=== PATIENT | male | born 1945 | race Caucasian/White ===

== ENCOUNTER 2024-08-30 06:50 | Inpatient (IN) | payer OTHER ==
[2024-08-30] VITALS (8 sets, daily range): BP systolic 121–138; BP diastolic 75–93; PULSE 76–91; RESP 18–20; TEMP 97.7–98.2; O2SAT 94–98
[~2024-08-30] VITALS: Ht 170.2 cm; Wt 77.2 kg
[2024-08-30 07:35] LABS: Basophils # (auto) 0 10 ^3/uL (0-0.2); Basophils % (auto) 0.7 % (0.0-2.0); Eosinophils # (auto) 0.1 10 ^3/uL (0-0.8); Eosinophils % (auto) 1.3 % (0.0-7.0); Hemoglobin 16.1 g/dL (13.5-17.5); Lymphocytes # (auto) 1.4 10 ^3/uL (0.4-5.4); Lymphocytes % (auto) 19.8 % (10.0-50.0); Mean Corpuscular Hemoglobin 31.3 pg (28.0-32.0); Mean Corpuscular Hgb Conc. 34.2 g/dL (32.0-36.0); Mean Corpuscular Volume 91.7 fL (80.0-100.0); Monocytes # (auto) 0.6 10 ^3/uL (0-1.3); Monocytes % (auto) 8.5 % (0.0-12.0); Neutrophils # (auto) 4.8 10 ^3/uL (1.6-8.6); Neutrophils % (auto) 69.7 % (37.0-80.0); Nucleated Red Blood Cells % 0.1 %; Platelet Count (auto) 183 10^3/uL (140-450); Red Blood Cells 5.12 10^6/uL (4.5-5.90); Red Cell Distribution Width 14.1 % (11.8-14.3); White Blood Cell 6.9 10^3/uL (4.4-10.8)
--- NOTE | 2024-08-30 07:35 | DVH ---
EXAM: XR Chest, 1 View CLINICAL INDICATION: chest pain TECHNIQUE: Frontal view of the chest. COMPARISON: None FINDINGS: LUNGS AND PLEURAL SPACES: Right basilar atelectasis or pneumonia. No pneumothorax. HEART: Unremarkable. No cardiomegaly. MEDIASTINUM: Unremarkable. Normal mediastinal contour. BONES/JOINTS: Unremarkable. No acute fracture. OTHER FINDINGS: . . . .. IMPRESSION: Right basilar atelectasis or pneumonia.
[2024-08-30 07:40] LABS: Potassium 4.1 mmol/L (3.5-5.1); Sodium 139 mmol/L (136-145)
[2024-08-30 07:41] LABS: Anion Gap 7 (5-15); Calcium 9.7 mg/dL (8.7-10.4); Carbon Dioxide 25 mmol/L (20-31)
[2024-08-30 07:46] LABS: BUN/Creatinine Ratio 23.6 (10.0-20.0); Glucose 105 mg/dL (74-106)
[2024-08-30 07:50] LABS: Blood Urea Nitrogen 25 mg/dL (9-23); Chloride 107 mmol/L (98-107)
--- NOTE | 2024-08-30 08:18 | ED.PDOC ---
History of Present Illness HPI Comments 79M with a history of metastatic melanoma presents with 4 hours of severe 8/10 left-sided chest pain that does not radiate it is associated with some shortness of breath is not exertional in nature and is not relieved by anything at this time. Patient reports he had a similar episode to this several years ago in [place] but is unsure of what it was. Patient denies any fever chills nausea vomiting diarrhea dysuria or polyuria sick contacts. Chief Complaint: Chest Pain Time Seen by MD: 06:59 Allergies: Coded Allergies: NO KNOWN ALLERGIES (Unverified , 08/30/24) Information Source: Patient Mode of Arrival: Ambulatory All Other Systems: Reviewed and Negative Physical Exam General Appearance: Mild Distress HEENT: Normal ENT Inspection Neck: Non-Tender Respiratory: No Respiratory Distress Cardiovascular: Normal Peripheral Pulses Breast Exam: Normal, Deferred Gastrointestinal: Non Tender Genitalia: Deferred Pelvic: Deferred Rectal: Deferred Extremities: No calf tenderness, Normal capillary refill, Normal inspection, Normal range of motion, Non-tender, No pedal edema Neurologic: No Motor Deficits Cerebellar Function: NOT DONE Reflexes: NOT DONE Skin: Dry, Normal Color, Warm Lymphatic: NOT DONE Was a procedure done? Was a procedure done?: No Differential Dx Considerations may include: ACS, ME, pneumonia, viral syndrome, musculoskeletal strain, CHF X-Ray, Labs, Meds, VS Vital Signs Date Time Temp Pulse Resp B/P (MAP) Pulse Ox O2 Delivery O2 Flow Rate FiO2 08/30/24 07:53 83 08/30/24 06:59 98.2 80 16 117/82 (94) 95 08/30/24 06:57 81 Lab Test 08/30/24 07:09 Range/Units White Blood Count 6.9 4.4-10.8 10^3/uL Red Blood Count 5.12 4.5-5.90 10^6/uL Hemoglobin 16.1 13.5-17.5 g/dL Hematocrit 47.0 41.0-53.0 % Mean Corpuscular Volume 91.7 80.0-100.0 fL Mean Corpuscular Hemoglobin 31.3 28.0-32.0 pg Mean Corpuscular Hemoglobin Concent 34.2 32.0-36.0 g/dL Red Cell Distribution Width 14.1 11.8-14.3 % Platelet Count 183 140-450 10^3/uL Mean Platelet Volume 8.6 6.9-10.8 fL Neutrophils (%) (Auto) 69.7 37.0-80.0 % Lymphocytes (%) (Auto) 19.8 10.0-50.0 % Monocytes (%) (Auto) 8.5 0.0-12.0 % Eosinophils (%) (Auto) 1.3 0.0-7.0 % Basophils (%) (Auto) 0.7 0.0-2.0 % Neutrophils # (Auto) 4.8 1.6-8.6 10 ^3/uL Lymphocytes # (Auto) 1.4 0.4-5.4 10 ^3/uL Monocytes # (Auto) 0.6 0-1.3 10 ^3/uL Eosinophils # (Auto) 0.1 0-0.8 10 ^3/uL Basophils # (Auto) 0 0-0.2 10 ^3/uL Nucleated Red Blood Cells 0.1 % Sodium Level 139 136-145 mmol/L Potassium Level 4.1 3.5-5.1 mmol/L Chloride Level 107 98-107 mmol/L Carbon Dioxide Level 25 20-31 mmol/L Anion Gap 7 5-15 Blood Urea Nitrogen 25 H 9-23 mg/dL Creatinine 1.06 0.700-1.30 mg/dL Glomerular Filtration Rate Calc 72 >90 mL/min BUN/Creatinine Ratio 23.6 H 10.0-20.0 Serum Glucose 105 74-106 mg/dL Calcium Level 9.7 8.7-10.4 mg/dL Troponin I High Sensitivity 6 </=54 ng/L Time of 1ST Reevaluation: 08:16 Reevaluation 1ST: Improved Patient Education/Counseling: Diagnosis, Treatment Family Education/Counseling: No Family Present Departure 1 Departure Time of Disposition: 08:16 (Patient presented with chest pain that was concerning for possible STEMI, ACS, PE, Pneumonia, Muscle Strain, COPD, Dissection. Data: 1. I ordered and reviewed the result of at least 3 labs including a CBC, BMP, and Troponin. 2. I independently interpreted the following tests: EKG which shows sinus arrhythmia and Chest X-ray which shows concern for pneumonia.Risk:This patient has a high risk of morbidity due to further diagnostic testing or treatment and may suffer from an acute cardiac or respiratory disorder. Workup reveals concern versus ACS versus pneumonia and patient should be admitted for further workup and possible expert consultation. We will not give patient the full fluid bolus as patient has a component of volume overload on a physical exam.) Impression: Primary Impression: Right lower lobe pneumonia Qualified Codes: J18.9 - Pneumonia, unspecified organism Additional Impression: Acute chest pain Disposition: ADMITTED INPATIENT Admit to: Med Surg Condition: Serious Critical Care Note Critical Care Time?: Yes Critical care comment: Acute chest pain Authorized and Performed by: Nay Miguel MD Total critical care time: Approximately 36 minutes Due to a high probability of clinically significant, life threatening deterioration, the patient required my highest level of preparedness to intervene emergently and I personally spent this critical care time directly and personally managing the patient. This critical care time included obtaining a history; examining the patient; pulse oximetry; ordering and review of studies; arranging urgent treatment with development of a management plan; evaluation of patient's response to treatment; frequent reassessment; and, discussions with other providers. This critical care time was performed to assess and manage the high probability of imminent, life-threatening deterioration that could result in multi-organ failure. It was exclusive of separately billable procedures and treating other patients and teaching time. Please see my other sections and the rest of the note for further information on patient assessment and treatment. Stability Stability form required: No Heart Score Heart Score: Heart Score Response (Comments) Value History Moderate Suspicious 1 EKG Repolarization Disturb 1 Age >65 2 Risk Factors >3 or Hx ASHD 2 Troponin 1-2 x's Normal limit 1 Total 7 NAY MIGUEL MD Aug 30, 2024 08:18
[2024-08-30] MEDS: NITROGLYCERIN 0.4 MG SL TAB SL ONE (08:27)
[2024-08-30] MEDS: ONDANSETRON HCL 4 MG/2 ML VIAL IV ONE (08:28)
[2024-08-30] MEDS: ASPirin 81 mg TAB PO ONE (08:28)
[2024-08-30] MEDS: SODIUM CHLORIDE 0.9% 1,000 ML IV ONE ×2 (08:28→08:58)
[2024-08-30] MEDS: MORPHINE SULFATE 4 MG/ML SYR/VIAL IV ONE (08:28)
[2024-08-30] MEDS: CEFEPIME 2GM/50ML NS 50 ML IV ONE (08:44)
[2024-08-30] MEDS: AZITHROMYCIN 250 MG TAB PO ONE (08:44)
[2024-08-30] MEDS: VANCOMYCIN 1GM/250ML KIT 200 ML IV ONE (08:45)
[2024-08-30] MEDS ORDERED: ONDANSETRON HCL 4 MG/2 ML VIAL IV PRN (09:15)
[2024-08-30] MEDS ORDERED: DOCUSATE SOD 100 MG CAP PO PRN (09:15)
[2024-08-30] MEDS ORDERED: MORPHINE SULFATE INJ 2 MG/ml SYRG IV PRN (09:15)
[2024-08-30] MEDS ORDERED: NITROGLYCERIN 0.4 MG SL TAB SL PRN (09:15)
[2024-08-30] MEDS ORDERED: HYDROcodone-ACET 5/325MG TAB PO PRN (09:15)
--- NOTE | 2024-08-30 09:23 | DVHHP2 ---
History of Present Illness Reason for Visit: Chest Pain History of Present Illness Triston Martin is a 79-year-old male with past medical history of hyperlipidemia, and cancer who came to the hospital due to chest pain. Patient states the pain started early this morning across his chest and was sharp in nature. The pain was not improving after a couple hours so his caregiver brought him to the hospital. Troponin were negative, he was found to have pneumonia. After receiving some breathing treatments he states his pain has improve and he feels better. Patient also states that he has had a non-productive cough for about 1 week. Patient states he does take some medications at home, but can not remember what they are. Requested him to call his caregiver and have her bring in the medications. Cardiovascular: hyperipidemia Heme/Onc: Cancer Review of Systems Constitutional: No: Fever, Chills, Sweats, Weakness, Malaise, Other Eyes: No: Pain, Vision change, Conjunctivae inflammation, Eyelid inflammation, Other, Redness ENT: No: Ear pain, Ear discharge, Nose pain, Nose discharge, Nose congestion, Mouth pain, Mouth swelling, Throat pain, Throat swelling, Other Respiratory: Cough, Shortness of breath, SOB with excertion; No: Dry, Wheezing, Hemoptysis, Pleuritic Pain, Sputum, Wheezing, Other Cardiovascular: Chest Pain; No: Palpitations, Orthopnea, Paroxysmal Noc. Dyspnea, Edema, Lt Headedness, Other Gastrointestinal: No: Nausea, Vomiting, Abdominal Pain, Diarrhea, Constipation, Melena, Hematochezia, Other Genitourinary: No Dysuria, No Frequency, No Incontinence, No Hematuria, No Retention, No Other Musculoskeletal: No: other, neck pain, shoulder pain, arm pain, back pain, hand pain, leg pain, foot pain Skin: No: Rash, Lesions, Jaundice, Bruising, Other Neurological: No: Weakness, Numbness, Incoordination, Change in speech, Confusion, Seizures, Other Allergies: Coded Allergies: NO KNOWN ALLERGIES (Unverified , 08/30/24) Medications Current Medications Medications Dose Ordered Sig/Melonie Route Start Time Stop Time Status Last Admin Dose Admin Sodium Chloride 10 ml Q8HR IV 08/30/24 14:00 UNV Acetaminophen/ Hydrocodone Bitart 1 tab Q4HP PRN PO 08/30/24 09:15 UNV Ondansetron HCl 4 mg Q4HP PRN IV 08/30/24 09:15 UNV Docusate Sodium 100 mg BIDPRN PRN PO 08/30/24 09:15 UNV Acetaminophen 650 mg Q6HP PRN PO 08/30/24 09:15 UNV Nitroglycerin 0.4 mg Q5MINP PRN SL 08/30/24 09:15 UNV Morphine Sulfate 2 mg Q30M PRN IV 08/30/24 09:15 UNV Methylprednisolone Sodium Succinate 40 mg BID IV 08/30/24 10:00 UNV Ipratropium [place] 0.5 mg Q4HPRN PRN NEB 08/30/24 09:15 UNV Albuterol 2.5 mg Q4HPRN PRN NEB 08/30/24 09:15 UNV Cefepime HCl 50 ml @ 12.5 mls/hr Q12HR IV 08/30/24 22:00 UNV Azithromycin 250 ml @ 125 mls/hr DAILY IV 08/31/24 10:00 UNV Exam Vital Signs Vital Signs Date Time Temp Pulse Resp B/P (MAP) Pulse Ox O2 Delivery O2 Flow Rate FiO2 08/30/24 08:58 72 17 115/76 08/30/24 08:31 Room Air* 0 21 08/30/24 06:59 98.2 95 General Appearance: Alert, Oriented X3, Cooperative, mild distress HEENT: Atraumatic, PERRLA Respiratory: Other (diminished breath sounds) Cardiovascular: Regular rate, Normal S1, Normal S2 Abdominal: Normal bowel sounds, Soft, No tenderness Extremities: No clubbing, No cyanosis, No edema, Normal pulses Skin: No rashes, No breakdown, No significant lesion Neuro: Normal gait, Normal speech, Strength at 5/5 X4 ext Psych/Mental Status: Mental status NL, Mood NL Labs/Xrays Labs Test 08/30/24 08:44 08/30/24 07:09 Range/Units White Blood Count 6.9 4.4-10.8 10^3/uL Red Blood Count 5.12 4.5-5.90 10^6/uL Hemoglobin 16.1 13.5-17.5 g/dL Hematocrit 47.0 41.0-53.0 % Mean Corpuscular Volume 91.7 80.0-100.0 fL Mean Corpuscular Hemoglobin 31.3 28.0-32.0 pg Mean Corpuscular Hemoglobin Concent 34.2 32.0-36.0 g/dL Red Cell Distribution Width 14.1 11.8-14.3 % Platelet Count 183 140-450 10^3/uL Mean Platelet Volume 8.6 6.9-10.8 fL Neutrophils (%) (Auto) 69.7 37.0-80.0 % Lymphocytes (%) (Auto) 19.8 10.0-50.0 % Monocytes (%) (Auto) 8.5 0.0-12.0 % Eosinophils (%) (Auto) 1.3 0.0-7.0 % Basophils (%) (Auto) 0.7 0.0-2.0 % Neutrophils # (Auto) 4.8 1.6-8.6 10 ^3/uL Lymphocytes # (Auto) 1.4 0.4-5.4 10 ^3/uL Monocytes # (Auto) 0.6 0-1.3 10 ^3/uL Eosinophils # (Auto) 0.1 0-0.8 10 ^3/uL Basophils # (Auto) 0 0-0.2 10 ^3/uL Nucleated Red Blood Cells 0.1 % Sodium Level 139 136-145 mmol/L Potassium Level 4.1 3.5-5.1 mmol/L Chloride Level 107 98-107 mmol/L Carbon Dioxide Level 25 20-31 mmol/L Anion Gap 7 5-15 Blood Urea Nitrogen 25 H 9-23 mg/dL Creatinine 1.06 0.700-1.30 mg/dL Glomerular Filtration Rate Calc 72 >90 mL/min BUN/Creatinine Ratio 23.6 H 10.0-20.0 Serum Glucose 105 74-106 mg/dL Calcium Level 9.7 8.7-10.4 mg/dL EXAM: XR Chest, 1 View FINDINGS: LUNGS AND PLEURAL SPACES: Right basilar atelectasis or pneumonia. No pneumothorax. HEART: Unremarkable. No cardiomegaly. MEDIASTINUM: Unremarkable. Normal mediastinal contour. BONES/JOINTS: Unremarkable. No acute fracture. OTHER FINDINGS: . . . .. IMPRESSION: Right basilar atelectasis or pneumonia. 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 Procedure Category Date Status Time Admit ADMIT 08/30/24 Transmitted 09:15 Code Status CODE 08/30/24 Transmitted 09:15 2 Gm Sodium Diet DIET 08/30/24 Transmitted Breakfast Sodium Chloride Lock PHA 08/30/24 Logged (Saline Lock Ns) 14:00 Hydrocodone-Acet PHA 08/30/24 Logged 5/325mg Tab ([place] 09:15 Ondansetron Hcl PHA 08/30/24 Logged (Zofran) 09:15 Docusate Sodium PHA 08/30/24 Logged Capsule (Colace 09:15 Complete Blood Count LAB 08/31/24 Verified 04:00 Comprehensive LAB 08/31/24 Verified Metabolic Panel 04:00 Condition: Serious JIMMIE 08/30/24 In Process 09:15 Acetaminophen Tablet PHA 08/30/24 Logged (Tylenol Tablet) 09:15 Nitroglycerin PHA 08/30/24 Logged Sublingual (Ntrostat 09:15 Morphine Sulfate PHA 08/30/24 Logged Injection 09:15 Stat Ekg For Chest JIMMIE 08/30/24 In Process Pain 09:15 Notify Md Of Changes JIMMIE 08/30/24 In Process From Base 09:15 Entertainment Director For JIMMIE 08/30/24 In Process 24 Hours 09:15 Emergency Dysrhythmia JIMMIE 08/30/24 In Process Protocol 09:15 Rhythm Strips Once JIMMIE 08/30/24 In Process Every Shift 09:15 Oxygen By Nasal RT 08/30/24 Transmitted Cannula 09:15 Methylprednisolone PHA 08/30/24 Logged Sod Succ (Solu Medrol 10:00 Ipratropium Medneb PHA 08/30/24 Logged (Atrovent Medneb) 09:15 Albuterol Medneb PHA 08/30/24 Logged (Ventolin Medneb) 09:15 Cefepime 1gm/ 50ml PHA 08/30/24 Logged (Maxipime 1gm/50ml) 22:00 Azithromycin 500mg/ PHA 08/31/24 Transmitted 250ml (Zithromax 50 10:00 Date of Service: Aug 30, 2024 Billing Provider: FAY POTTER Common Visit Codes: [id number] INP/OBS CARE (MOD) FAY POTTER Aug 30, 2024 09:23
[2024-08-30] MEDS: methylPREDNISolone SOD SUCC 40 MG/ML VL IV SCH (10:23)
[2024-08-30] MEDS: SODIUM CHLOR 0.9% PF (SALINE LOCK) 10ML VIAL/SYR IV SCH (14:10)
--- NOTE | 2024-08-30 14:43 | ECG ---
[facility] Test Date: 2024-08-30 Test Time: 09:52:33 Pat Name: EMILY LYONS Department: ER Room: [address] [place] [address] A Gender: M Publishing Director: LARISA : 1945 Requested By: VERONIQUE COOPER Order Number: [id number] Reading MD: Presley Rosales Measurements Intervals [place] Rate: 80 P: 18 SC: 170 QRS: -58 QRSD: 93 T: 0 QT: 508 QTc: 587 Interpretive Statements Sinus rhythm Ventricular premature complex Left anterior fascicular block Abnormal R-wave progression, early transition Borderline T wave abnormalities Prolonged QT interval Electronically Signed On 08-30-2024 17:52:20 PST by Presley Rosales Please click the below link to view image of tracing.
--- NOTE | 2024-08-30 14:43 | ECG ---
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
[2024-08-30] MEDS: CEFEPIME 1GM/ 50ML 50 ML IV SCH (21:35)
[2024-08-30] MEDS ORDERED: BUPR-133 PO (21:50)
[2024-08-30] MEDS ORDERED: TRAZ-181 PO (21:50)
[2024-08-30] MEDS ORDERED: METH-1182 PO (21:50)
[2024-08-31] VITALS (12 sets, daily range): BP systolic 121–150; BP diastolic 76–98; PULSE 67–98; RESP 17–20; TEMP 97.6–98.4; O2SAT 91–97
[2024-08-31] MEDS: ALBUTEROL SULF 2.5 MG/0.5ML(0.5%) NEB SOLN NEB PRN (04:53)
[2024-08-31] MEDS: IPRATROPIUM BROM 0.5 MG/2.5ML INH SOL NEB PRN (04:53)
--- NOTE | 2024-08-31 06:41 | ECG ---
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
[2024-08-31 07:09] LABS: Basophils # (auto) 0 10 ^3/uL (0-0.2); Basophils % (auto) 0.2 % (0.0-2.0); Eosinophils # (auto) 0 10 ^3/uL (0-0.8); Hematocrit 47.1 % (41.0-53.0); Hemoglobin 16.3 g/dL (13.5-17.5); Lymphocytes # (auto) 0.9 10 ^3/uL (0.4-5.4); Lymphocytes % (auto) 11.5 % (10.0-50.0); Mean Corpuscular Hemoglobin 31.6 pg (28.0-32.0); Mean Corpuscular Hgb Conc. 34.6 g/dL (32.0-36.0); Mean Corpuscular Volume 91.5 fL (80.0-100.0); Monocytes # (auto) 0.4 10 ^3/uL (0-1.3); Monocytes % (auto) 5.4 % (0.0-12.0); Neutrophils # (auto) 6.5 10 ^3/uL (1.6-8.6); Neutrophils % (auto) 82.9 % (37.0-80.0); Nucleated Red Blood Cells % 0.1 %; Platelet Count (auto) 196 10^3/uL (140-450); Red Blood Cells 5.14 10^6/uL (4.5-5.90); Red Cell Distribution Width 13.9 % (11.8-14.3); White Blood Cell 7.9 10^3/uL (4.4-10.8)
[2024-08-31 07:18] LABS: Alanine Aminotransferase 19 U/L (7-40); Albumin 4.7 g/dL (3.2-4.8); Alkaline Phosphatase 66 U/L (46-116); Anion Gap 11 (5-15); Aspartate Aminotransferase 20 U/L (13-40); BUN/Creatinine Ratio 27.3 (10.0-20.0); Bilirubin, Total 0.4 mg/dL (0.2-1.0); Calcium 9.6 mg/dL (8.7-10.4); Carbon Dioxide 23 mmol/L (20-31); Chloride 106 mmol/L (98-107); Potassium 4.6 mmol/L (3.5-5.1); Sodium 140 mmol/L (136-145)
[2024-08-31 07:21] LABS: Blood Urea Nitrogen 30 mg/dL (9-23); Glucose 151 mg/dL (74-106)
[2024-08-31] MEDS: AZITHROMYCIN 500MG/ 250ML 250 ML IV SCH (09:31)
[2024-08-31 11:55] LABS: COVID19 ANTIGEN SOFIA FIA NEGATIVE (NEGATIVE); Rapid Influenza A Negative (Negative); Rapid Influenza B Negative (Negative)
--- NOTE | 2024-08-31 13:52 | MEDREC ---
[facility] Intervention Section I [facility] Intervention: Review courses of therapy (DUE TO PROLONG QTc > 500 PLEASE CONSIDER SWITCHING AZITHROMYCIN TO DOXYCYCLINE ) CYRIL LAWTON PHARMACIST Aug 31, 2024 13:52
[2024-08-31] MEDS ORDERED: hydrALAZINE HCL 20 MG/ML VL IV PRN (14:45)
--- NOTE | 2024-08-31 14:55 | DVHINCON2 ---
Date Seen: Aug 31, 2024 Referring Physician MD Clary Reason for Consultation Chest pain History of Present Illness This is a 79-year-old man who presents the emergency room with a chief complaint of chest pain since last night. Describes his chest pain as left-sided, stabbing in nature, radiating to his left arm, associated with mild shortness of breath, and intermittent which prompted his caregiver to recommend further medical attention. Upon arrival to the emergency room he underwent multiple 12 lead electrocardiogram revealing a sinus rhythm with premature ventricular contractions, notched P-waves, a prolonged QT interval, and nonspecific T-wave inversion to anterolateral leads. Serial troponin levels are negative. Significant medical history includes dyslipidemia, melanoma, a smoking history of 50 pack years quitting 1.5 years ago, history of polysubstance abuse including cocaine/methamphetamines/fentanyl/cannabinoids, and history of alcohol use. Past Medical History Past medical history reviewed. No other significant than mentioned above. Past Surgical History Past surgical history reviewed. No other significant than mentioned above. Family History Family history reviewed. Social History See HPI. Allergies: Coded Allergies: NO KNOWN ALLERGIES (Unverified , 08/30/24) Home Meds Reported Medications Bupropion Hcl (Bupropion Hcl Er) 150 Mg Tab, 150 MG PO DAILY, TAB 08/30/24 Methocarbamol (Methocarbamol) 750 Mg Tab, 750 MG PO BID, TAB 08/30/24 Trazodone HCl (Trazodone Hydrochloride) 50 Mg Tab, 100 MG PO, TAB 08/30/24 Home Meds Home medications reviewed. Current Medications Current Medications Medications (Trade) Dose Ordered Sig/Melonie Route PRN Reason Start Time Stop Time Status Last Admin Cefepime HCl 50 ml @ 12.5 mls/hr Q12HR IV 08/30/24 22:00 08/31/24 11:10 DC 08/31/24 09:41 Azithromycin 250 ml @ 125 mls/hr DAILY IV 08/31/24 10:00 08/31/24 09:31 Ceftriaxone Sodium 50 ml @ 100 mls/hr DAILY@09 IV 09/01/24 09:00 Review of Systems Constitutional: No symptom reported Ears, Nose, & Throat: No symptom reported Eyes: No symptom reported Neurological: No symptoms reported Pulmonary/Respiratory: SOB Cardiovascular: Chest pain Gastrointestinal: No symptom reported Genitourinary: No symptom reported Musculoskeletal: No symptom reported Skin: No symptom reported Psychiatric: No symptom reported Endocrine: No symptom reported Hemotologic/Lymphatic: No symptom reported Vital Signs Vital Signs Date Time Temp Pulse Resp B/P (MAP) Pulse Ox O2 Delivery O2 Flow Rate FiO2 08/31/24 13:00 97.6 82 19 150/96 (114) 94 97.6 08/31/24 09:45 Room Air 0.0 08/31/24 09:45 21 Physical Exam General Appearance: Cooperative. Well developed. Well nourished. In no acute distress Head Exam: Normal inspection Neck Exam: Normal inspection. Non-tender. Normal alignment Pulmonary/Respiratory: Chest non-tender. Diminished bilateral breath sounds Cardiovascular/Chest: Regular rate and rhythm. S1, S2. Sinus rhythm with multiple PVCs, prolonged QTi, T-wave inversion to anterolateral leads. Peripheral Pulses: 2+ Radial (R). 2+ Radial (L). 2+ Pedal (R). 2+ Pedal (L) Abdominal Exam: Normal bowel sounds. Soft. Nontender. No hepatospenomegaly. No masses Ankle Exam: Negative ankle edema Lower extremities: Negative lower extremity edema Neuro/Mental Status: A&O x3. Coherent Thoughts/Psych: Normal thought pattern. Appropriate mood and affect. Appearance: In no acute distress Skin Exam: Normal inspection. Normal color. Warm. Dry Labs/Diagnostic Data Labs Test 08/31/24 10:26 08/31/24 06:15 08/30/24 10:45 08/30/24 08:44 Range/Units Influenza Type A Antigen Negative Negative Influenza Type B Antigen Negative Negative SARS-CoV-2 Antigen (Rapid) Negative NEGATIVE White Blood Count 7.9 4.4-10.8 10^3/uL Red Blood Count 5.14 4.5-5.90 10^6/uL Hemoglobin 16.3 13.5-17.5 g/dL Hematocrit 47.1 41.0-53.0 % Mean Corpuscular Volume 91.5 80.0-100.0 fL Mean Corpuscular Hemoglobin 31.6 28.0-32.0 pg Mean Corpuscular Hemoglobin Concent 34.6 32.0-36.0 g/dL Red Cell Distribution Width 13.9 11.8-14.3 % Platelet Count 196 140-450 10^3/uL Mean Platelet Volume 8.8 6.9-10.8 fL Neutrophils (%) (Auto) 82.9 H 37.0-80.0 % Lymphocytes (%) (Auto) 11.5 10.0-50.0 % Monocytes (%) (Auto) 5.4 0.0-12.0 % Eosinophils (%) (Auto) 0.0 0.0-7.0 % Basophils (%) (Auto) 0.2 0.0-2.0 % Neutrophils # (Auto) 6.5 1.6-8.6 10 ^3/uL Lymphocytes # (Auto) 0.9 0.4-5.4 10 ^3/uL Monocytes # (Auto) 0.4 0-1.3 10 ^3/uL Eosinophils # (Auto) 0 0-0.8 10 ^3/uL Basophils # (Auto) 0 0-0.2 10 ^3/uL Nucleated Red Blood Cells 0.1 % Sodium Level 140 136-145 mmol/L Potassium Level 4.6 3.5-5.1 mmol/L Chloride Level 106 98-107 mmol/L Carbon Dioxide Level 23 20-31 mmol/L Anion Gap 11 5-15 Blood Urea Nitrogen 30 H 9-23 mg/dL Creatinine 1.10 0.700-1.30 mg/dL Glomerular Filtration Rate Calc 69 >90 mL/min BUN/Creatinine Ratio 27.3 H 10.0-20.0 Serum Glucose 151 H 74-106 mg/dL Calcium Level 9.6 8.7-10.4 mg/dL Total Bilirubin 0.4 0.2-1.0 mg/dL Aspartate Amino Transferase (AST) 20 13-40 U/L Alanine Aminotransferase (ALT) 19 7-40 U/L Alkaline Phosphatase 66 46-116 U/L Total Protein 7.0 5.7-8.2 g/dL Albumin 4.7 3.2-4.8 g/dL Troponin I High Sensitivity 5 </=54 ng/L Lactic Acid Level 0.9 0.4-2.0 mmol/L Microbiology Date/Time Source Procedure Growth Status 08/30/24 08:44 Blood Blood Culture - Preliminary NO GROWTH AFTER 24 HOURS OF INCUBATION. Resulted Assessment Chest pain rule out coronary artery disease Rule out structural heart disease Prolonged QT interval >580 ms Right lower lobe pneumonia History of heavy tobacco use History of polysubstance abuse Plan/Recommendation (Dr. Rosales) Scheduled for a transthoracic echocardiogram to rule out structural heart disease as well as a Cardiolite stress test to rule out coronary ischemia. In the meantime, continue ABX therapy per primary care team including discontinuation of azithromycin given prolonged QT interval. The patient has been initiated on doxycycline. Upgrade to telemetry and monitor ECG changes closely as the patient is at high risk for torsades de pointes. Avoid class III antiarrhythmic agents. Initiate single-antiplatelet therapy and beta-norma. Rest of plan per clinical course. Thank you for allowing us to participate in this patient's care. Please call if you have any questions or concerns. This medical document was created using an electronic medical record system with voice recognition software and computerized dictation system. Although this document has been carefully reviewed, there might still be some phonetic and typographical errors. Occasional wrong-word or ``sound-alike substitutions may have occurred due to the inherent limitations of voice recognition software. These areas are purely typographical due to imperfections of the software programs and do not reflect any compromise in the patient's medical care. Please read the chart carefully and recognize, using context, where these substitutions have occurred. Plan discussed with: Patient, Other NYHA Physical activity limitations: NA Date of Service: Aug 31, 2024 Billing Provider: JOSEPH URBAN Cardiology Common Codes: [id number] INP/OBS CARE (High) JOSEPH URBAN Aug 31, 2024 14:54
[2024-08-31] MEDS: cefTRIAXone 1GM/50ML D5W 50 ML IV ONE (15:07)
[2024-08-31] MEDS: ASPirin 81 mg TAB PO ONE (15:07)
[2024-08-31] MEDS: METOPROLOL SUCCINATE XL 50 MG TAB PO ONE (15:08)
[2024-08-31 15:53] LABS: Magnesium 2.5 mg/dL (1.6-2.6)
--- NOTE | 2024-08-31 19:56 | DVHPNRES ---
Progress Note Date Seen: Aug 31, 2024 Resident Creating Document: NIELS CAO RESIDENT Medical Necessity Reason Pt with a Central, PICC or Fol: No Medical Necessity Reason sharp chest pain Subjective Review of Systems This is a 79-year-old male with past medical history significant for hyperlipidemia and cancer presented to the hospital due to chest pain. Patient stated the pain started early yesterday ( 08/30/2024) morning across his chest. Pain was sharp in nature and radiated to his left arm. There was no associate nausea or vomiting and no aggravating or relieving factors. Patient rested at home hoping the pain would subside, but no improvement. Therefore, patient came to the ED for evaluation. Upon arrrival to the ED, vitals were temperature 98.2, pulse 81, respiratory rate 16 and blood pressure of 117/80. WBC and chemistry were grossly unremarkable. Patient has a hemoglobin A1c of 5.4 with serum glucose of 151. Cholesterol 217 and LDL cholesterol 162 TSH was 1.43. patient was negative for both influenza a and B and COVID. Troponin were negative, BNP was 42. Twelve lead EKG shows prolonged QT the inferior leads which was not reliabl; some PVCs and T-wave inversion in the anterolateral leads. Chest x-ray revealed Right basilar atelectasis or pneumonia. Of note patient admitted to smoking cigarettes during drugs everything except for heroin and also alcohol since the age of 12 until about a year and a half ago. Given the history of substance abuse and no and never seen a nephrology social worker and the EKG finds, will recommend a cardiac consult for ischemic workup. Constitutional: Denies fever no chills no feeling of malaise HEENT: Denies headache, ear pain, ear discharges, conjunctivitis, nasal discharge throat pain Cardiovascular: Denies chest pain, palpitation, orthopnea, PND, or pedal edema Respiratory: Denies shortness of breath, cough cough, sputum production, hemoptysis, GI: Denies abdominal pain, nausea, vomiting, diarrhea, hematemesis, hematochezia, : Denies frequency, urgency, hematuria, Endocrine: Denies unintentional weight gain or weight loss, feeling of hot flashes, Aleksandar: Denies easy bruising, bleeding disorders, epistaxis Musculoskeletal: Denies joint pains, muscle aches Psych: No evidence of depression, karie, suicidal ideation Objective vital signs Vital Sign Date Time Temp Pulse Resp B/P (MAP) Pulse Ox O2 Delivery O2 Flow Rate FiO2 08/31/24 18:30 95 Room Air* 0 21 08/31/24 16:32 98.1 67 17 121/76 (91) 98.1 Total Intake and Output 08/30/24 08/30/24 08/31/24 15:00 23:00 07:00 Intake Total 2212.5 ml 500 ml 400 ml Output Total 400 ml Balance 2212.5 ml 100 ml 400 ml medications Current Medications Medications Dose Ordered Sig/Melonie Route Start Time Stop Time Status Last Admin Dose Admin Sodium Chloride 10 ml Q8HR IV 08/30/24 14:00 08/31/24 15:08 10 ML Acetaminophen/ Hydrocodone Bitart 1 tab Q4HP PRN PO 08/30/24 09:15 Ondansetron HCl 4 mg Q4HP PRN IV 08/30/24 09:15 Docusate Sodium 100 mg BIDPRN PRN PO 08/30/24 09:15 Acetaminophen 650 mg Q6HP PRN PO 08/30/24 09:15 Nitroglycerin 0.4 mg Q5MINP PRN SL 08/30/24 09:15 Morphine Sulfate 2 mg Q30M PRN IV 08/30/24 09:15 Ipratropium Lorenzo 0.5 mg Q4HPRN PRN NEB 08/30/24 09:15 08/31/24 04:53 0.5 MG Albuterol 2.5 mg Q4HPRN PRN NEB 08/30/24 09:15 08/31/24 04:53 2.5 MG Ceftriaxone Sodium 50 ml @ 100 mls/hr DAILY@09 IV 09/01/24 09:00 Aspirin 81 mg DAILY PO 09/01/24 10:00 Metoprolol Succinate 25 mg DAILY PO 09/01/24 10:00 Hydralazine HCl 10 mg Q6HP PRN IV 08/31/24 14:45 Enoxaparin Sodium 40 mg DAILY SC 09/01/24 10:00 Doxycycline Hyclate 100 ml @ 50 mls/hr Q12HR IV 09/01/24 22:00 Examination General Appearance: Alert, Oriented X3, Cooperative, No acute distress HEENT: Atraumatic, PERRLA, EOMI, Mucous membrane moist/pink Respiratory: Diminished breath sounds Cardiovascular: Regular rate, Normal S1, Normal S2, No murmurs, no chest wall tenderness, Sinus rhythm with multiple PVCs, prolonged QTi, T-wave inversion to anterolateral leads Abdominal: NO distention, no tenderness, bowel sounds present, no scars noted Extremities: No clubbing, No cyanosis, No edema, Normal pulses, No tenderness/swelling Skin: No rashes, No breakdown, No significant lesion Neuro: Normal gait, Normal speech, Strength at 5/5 X4 ext, Normal tone, Sensation intact, Cranial nerves 3-12 NL, Reflexes 2+ Psych/Mental Status: Mental status NL, Mood NL laboratory and microbiology Laboratory Tests 08/31/24 06:15 Test 08/31/24 06:15 Range/Units Serum Glucose 151 H 74-106 mg/dL Microbiology Date/Time Source Procedure Growth Status 08/30/24 08:44 Blood Blood Culture - Preliminary NO GROWTH AFTER 24 HOURS OF INCUBATION. Resulted Problem List/Assessment/Plan Problem List/Assessment/Plan Assessment Pneumonia due to Gram-positive/ Gram-negative Chest pain, rule out ischemic vs structural heart disease, pending echo Abnormal EKG History of polysubstance abuse Possible COPD, long history of tobacco abuse hyperlipidemia History cancer Plan Antibiotics: ceftriaxone, doxycycline Discontinue azithromycin due to ?QT prolongation ( not prolonged via manual calculations) Cardiac consult Echo pending Recommend pulmonology consult evaluation post discharge Diet: cardiac diet for now DVT prophylaxis: None, patient is mobile Code status: Full Goal of care discussed for more than 35 minutes Case and plan discussed with Dr. Wynn Plan discussed with: Patient My Orders My Orders Orders - NIELS CAO Procedure Category Date Status Time Respiratory Culture VARINDER 08/31/24 Logged W/ Gs 07:00 Drug Screen LAB 08/31/24 Logged 07:00 Ceftriaxone 1gm/50ml PHA 09/01/24 In Process D5w (Rocephin) 09:00 * Cardiology Consult CONS 08/31/24 Transmitted 12:26 Date of Service: Aug 31, 2024 Billing Provider: HOWIE WYNN MD Common Visit Codes: [id number] INP/OBS CARE(HIGH) NIELS CAO Aug 31, 2024 19:56 HOWIE WYNN MD Sep 01, 2024 07:27
[2024-09-01] VITALS (9 sets, daily range): BP systolic 124–144; BP diastolic 72–92; PULSE 58–75; RESP 16–19; TEMP 97.4–98.1; O2SAT 92–98
[2024-09-01] MEDS: ACETAMINOPHEN 325 MG TAB PO PRN (04:43)
[2024-09-01 05:14] LABS: Amphetamine Screen, Urine Neg (NEGATIVE)
[2024-09-01 05:19] LABS: Barbiturate Scree,Urine Neg (NEGATIVE); Benzodiazephine Screen, Urine Neg (NEGATIVE); Cannabinoid Screen, Urine Neg (NEGATIVE); Cocaine Screen, Urine Neg (NEGATIVE); Opiate Scree,Urine Neg (NEGATIVE); Phencyclidine Screen, Urine Neg (NEGATIVE)
[2024-09-01] MEDS: REGADENOSON 0.4 MG/5 ML SYRG IV ONE ×2 (08:55→08:57)
[2024-09-01] MEDS: ASPirin 81 mg TAB PO SCH (10:09)
[2024-09-01] MEDS: cefTRIAXone 1GM/50ML D5W 50 ML IV SCH (10:09)
[2024-09-01] MEDS: METOPROLOL SUCCINATE XL 50 MG TAB PO SCH (10:09)
[2024-09-01] MEDS: ENOXAPARIN SOD 40 MG/0.4 ML SYRINGE SC SCH (10:10)
--- NOTE | 2024-09-01 11:24 | DVHSR ---
APPROVED REPORT Exam: Nuclear Stress Test BMI: 0 Stress Test Details HR Max Heart Rate (APMHR): 142.953998 bpm Target HR (85% APMHR): 120.855322 bpm BP ECG Stress ECG Conclusion lvef 46% completely infarct inferoseptal wall consistent with prior RI no severe ischemia noted NM EXAM: Myocardial Perfusion REST/STRESS Imaging Protocol: Rest Tc-99m/Stress Tc-99m 2 days Resting Data Rest SPECT myocardial perfusion imaging was performed in supine position 45 minutes following the int ravenous injection of 15.1 mCi of Tc-99m Sestamibi. Time of rest injection: 1515 Time of rest imagin Administration Route: IV Administration Site: Right AC Pharmacologic Stress Pharmacologic stress test was performed by injecting Regadenoson 0.4 mg IV push followed by the intra venous injection of 20.5 mCi of Tc-99m Sestamibi. Time of stress injection: 0900 Time of stress imagin Administration Route: IV Administration Site: Left AC Gated Stress SPECT was performed 30 minutes after stress injection. The images were gated to evaluate regional wall motion and calculate left ventricular ejection fracti on. Nuclear Conclusion Nuclear Findings: equivocal lvef 46% completely infarct inferoseptal wall consistent with prior RI no severe ischemia noted
--- NOTE | 2024-09-01 12:11 | DVHSR ---
APPROVED REPORT EXAM: Two-dimensional and M-mode echocardiogram with Doppler and color Doppler. Blood Pressure: 135/83 mmHg INDICATION Chest Pain RISK FACTORS Height: 5'7", Weight: 170 DIMENSIONS LVDd5.5 (3.8-5.7cm)LA (2D)3.7 (1.9-4.0cm)Aortic Root (2.0-3.7cm) LVDs3.9 (2.5-4.0cm)LA (MM) (1.9-4.0cm)Aortic Cusp Exc (1.5-2.0cm) EF (%) 55.0 (55-70%)Rt. Atrium (1.9-4.0cm)Asc. Aorta cm Mitral Valve MitralMitral Stenosis E wave0.50m/sMV Mean GR.mmHg A wave0.92m/sMV Peak GR.mmHg E/A ratio0.52D MVAcm2 DECEL [id number] 1/2 Timems Aortic Valve Aortic ValveAortic Stenosis V11.12m/Susana Mean GR.4mmHg V21.37m/Susana Peak GR.7mmHg LVOT Diameter2.0 (1.8-2.4cm)Doppler AVA2.57cm2 AI P 1/2 Tzyr103.70ms Other Information Quality : Technically LimitedRhythm : Technically limited study due to body habitus and breathing. Conclusion Technically difficult study. Limited views. Sinus rhythm. Sigmoid septum. Mild concentric LVH. Mild left atrial enlargement. Aortic root dilation. Mild aortic sclerosis. Mild mitral annular calcification. Left ventricular function appears preserved. EF of 50% with normal RV function. Mild tricuspid regurgitation. No pericardial effusion masses or vegetations apparent.
--- NOTE | 2024-09-01 14:52 | DVHPN2 ---
Consult Progress Note Subjective Other Systems: Patient in normal sinus rhythm on scanner operator. Denies any cardiac symptoms overnight or at time of assessment. Objective vital signs Vital Sign Date Time Temp Pulse Resp B/P (MAP) Pulse Ox O2 Delivery O2 Flow Rate FiO2 09/01/24 14:03 65 18 97 09/01/24 13:57 Room Air* 0 21 09/01/24 13:00 98.0 126/87 (100) 98.0 Total Intake and Output 08/31/24 08/31/24 09/01/24 15:00 23:00 07:00 Intake Total 1040 ml 400 ml Balance 1040 ml 400 ml medications Current Medications Medications Dose Ordered Sig/Melonie Route Start Time Stop Time Status Last Admin Dose Admin Sodium Chloride 10 ml Q8HR IV 08/30/24 14:00 09/01/24 14:27 10 ML Acetaminophen/ Hydrocodone Bitart 1 tab Q4HP PRN PO 08/30/24 09:15 Ondansetron HCl 4 mg Q4HP PRN IV 08/30/24 09:15 Docusate Sodium 100 mg BIDPRN PRN PO 08/30/24 09:15 Acetaminophen 650 mg Q6HP PRN PO 08/30/24 09:15 09/01/24 04:43 650 MG Nitroglycerin 0.4 mg Q5MINP PRN SL 08/30/24 09:15 Morphine Sulfate 2 mg Q30M PRN IV 08/30/24 09:15 Ipratropium [place] 0.5 mg Q4HPRN PRN NEB 08/30/24 09:15 09/01/24 13:57 0.5 MG Albuterol 2.5 mg Q4HPRN PRN NEB 08/30/24 09:15 09/01/24 13:57 2.5 MG Ceftriaxone Sodium 50 ml @ 100 mls/hr DAILY@09 IV 09/01/24 09:00 09/01/24 10:09 100 MLS/HR Aspirin 81 mg DAILY PO 09/01/24 10:00 09/01/24 10:09 81 MG Metoprolol Succinate 25 mg DAILY PO 09/01/24 10:00 09/01/24 10:09 25 MG Hydralazine HCl 10 mg Q6HP PRN IV 08/31/24 14:45 Enoxaparin Sodium 40 mg DAILY SC 09/01/24 10:00 09/01/24 10:10 40 MG Doxycycline Hyclate 100 ml @ 50 mls/hr Q12HR IV 09/01/24 22:00 Examination: GENERAL:Normal, LUNGS:Normal, CVS:Normal, NEURO:Normal laboratory and microbiology Laboratory Tests 08/31/24 06:15 Test 08/31/24 06:15 Range/Units Serum Glucose 151 H 74-106 mg/dL Problem List/Assessment/Plan Problem List/Assessment/Plan Chest pain rule out coronary artery disease Prolonged QT interval >580 ms Right lower lobe pneumonia History of heavy tobacco use History of polysubstance abuse Plan/Recommendation (Dr. Rosales): Transthoracic echocardiogram reveals an EF of 50% with mild tricuspid regurgitation. The patient underwent a Cardiolite stress test in which nuclear findings were found to be "equivocal". Offered the patient to undergo a coronary angiogram with left heart catheterization, the patient adamantly refused. The patient states he is going home today no matter what even if he has to sign himself out. At the time of assessment, he denies any cardiac symptoms. Patient is strongly urged to stay in the hospital, but refusing any further workup. Cardiology will sign off at this time. Please reconsult if needed. Thank you for allowing us to care for this patient. Please call with any questions or concerns. This medical document was created using an electronic medical record system with voice recognition software and computerized dictation system. Although this document has been carefully reviewed, there might still be some phonetic and typographical errors. Occasional wrong-word or ``sound-alike substitutions may have occurred due to the inherent limitations of voice recognition software. These areas are purely typographical due to imperfections of the software programs and do not reflect any compromise in the patient's medical care. Please read the chart carefully and recognize, using context, where these substitutions have occurred. Plan discussed with: Patient Date of Service: Sep 01, 2024 Billing Provider: ARNOLD GOLDSTEIN Common Visit Codes: [id number] INP/OBS CARE(HIGH) ARNOLD GOLDSTEIN Sep 01, 2024 14:52
[2024-09-01] MEDS ORDERED: LEVO750T40 PO (16:33)
--- NOTE | 2024-09-01 16:38 | DVHDSRES ---
Discharge Summary Date of Admission Resident Creating Document: NIELS CAO RESIDENT Aug 30, 2024 at 09:15 Date of Discharge: Sep 01, 2024 Admitting Diagnosis Chest pain Labs/Diagnostic Data: Laboratory Results Test 08/31/24 10:26 08/31/24 06:15 08/31/24 04:53 08/30/24 10:45 Influenza Type A Antigen Negative (Negative) Influenza Type B Antigen Negative (Negative) SARS-CoV-2 Antigen (Rapid) Negative (NEGATIVE) White Blood Count 7.9 10^3/uL (4.4-10.8) Red Blood Count 5.14 10^6/uL (4.5-5.90) Hemoglobin 16.3 g/dL (13.5-17.5) Hematocrit 47.1 % (41.0-53.0) Mean Corpuscular Volume 91.5 fL (80.0-100.0) Mean Corpuscular Hemoglobin 31.6 pg (28.0-32.0) Mean Corpuscular Hemoglobin Concent 34.6 g/dL (32.0-36.0) Red Cell Distribution Width 13.9 % (11.8-14.3) Platelet Count 196 10^3/uL (140-450) Mean Platelet Volume 8.8 fL (6.9-10.8) Neutrophils (%) (Auto) 82.9 % (37.0-80.0) Lymphocytes (%) (Auto) 11.5 % (10.0-50.0) Monocytes (%) (Auto) 5.4 % (0.0-12.0) Eosinophils (%) (Auto) 0.0 % (0.0-7.0) Basophils (%) (Auto) 0.2 % (0.0-2.0) Neutrophils # (Auto) 6.5 10 ^3/uL (1.6-8.6) Lymphocytes # (Auto) 0.9 10 ^3/uL (0.4-5.4) Monocytes # (Auto) 0.4 10 ^3/uL (0-1.3) Eosinophils # (Auto) 0 10 ^3/uL (0-0.8) Basophils # (Auto) 0 10 ^3/uL (0-0.2) Nucleated Red Blood Cells 0.1 % Sodium Level 140 mmol/L (136-145) Potassium Level 4.6 mmol/L (3.5-5.1) Chloride Level 106 mmol/L (98-107) Carbon Dioxide Level 23 mmol/L (20-31) Anion Gap 11 (5-15) Blood Urea Nitrogen 30 mg/dL (9-23) Creatinine 1.10 mg/dL (0.700-1.30) Glomerular Filtration Rate Calc 69 mL/min (>90) BUN/Creatinine Ratio 27.3 (10.0-20.0) Serum Glucose 151 mg/dL (74-106) Hemoglobin A1c 5.4 % A1C (<5.7) Calcium Level 9.6 mg/dL (8.7-10.4) Magnesium Level 2.5 mg/dL (1.6-2.6) Total Bilirubin 0.4 mg/dL (0.2-1.0) Aspartate Amino Transferase (AST) 20 U/L (13-40) Alanine Aminotransferase (ALT) 19 U/L (7-40) Alkaline Phosphatase 66 U/L (46-116) B-Type Natriuretic Peptide 42.10 pg/mL (0-100) Total Protein 7.0 g/dL (5.7-8.2) Albumin 4.7 g/dL (3.2-4.8) Triglycerides Level 57 mg/dL (< 150) Cholesterol Level 217 mg/dL (< 200) LDL Cholesterol 162 mg/dL (< 100) HDL Cholesterol 56 mg/dL (40-59) Thyroid Stimulating Hormone (TSH) 1.43 uIU/mL (0.55-4.78) Urine Opiates Screen Neg (NEGATIVE) Urine Fentanyl Screen Neg (NEGATIVE) Urine Barbiturates Screen Neg (NEGATIVE) Urine Phencyclidine Screen Neg (NEGATIVE) Urine Amphetamines Screen Neg (NEGATIVE) Urine Benzodiazepines Screen Neg (NEGATIVE) Urine Cocaine Screen Neg (NEGATIVE) Urine Cannabinoids Screen Neg (NEGATIVE) Troponin I High Sensitivity 5 ng/L (</=54) Test 08/30/24 08:44 Lactic Acid Level 0.9 mmol/L (0.4-2.0) Other Laboratory Tests 08/31/24 06:15 Brief Hx & Hospital Course: Brief HPI and hospital course This 79-year-old male with a past medical history significant for hyperlipidemia,cancer and polysubstance abuse presented to the hospital due to chest pain. Patient stated the pain started early on 08/30/2024 morning across his chest. Pain was sharp in nature a with radiated to his left arm. There was no associate nausea or vomiting and no aggravating or relieving factors. Patient rested at home hoping the pain would subside, but no improvement. Therefore, patient came to the ED for evaluation. Hospital Course In the ED, initials vitals were temperature 98.2, pulse 81, RR:16 and BP 117/80. WBC and chemistry were grossly unremarkable. Patient has a hemoglobin A1c of 5.4 with serum glucose of 151. Cholesterol 217 and LDL cholesterol 162 TSH 1.43, negative for both influenza a and B and COVID. Troponin were negative, BNP was 42. Twelve lead EKG shows prolonged QT the inferior leads which was not reliable; some PVCs and T-wave inversion in the anterolateral leads. Chest x- ray revealed Right basilar atelectasis or pneumonia. Manage pneumonia with antibiotics. Of note ,patient admitted to smoking cigarettes, drinking alcohol and doing drugs except for heroin since age 12 until about a year and a half ago. Gas Substation Operator consulted and patient underwent a cardiolite stress test in which nuclear findings were found to be "equivocal". Offered the patient to undergo a coronary angiogram with left heart catheterization, the patient adamantly refused. The patient stated he is going home no matter what even if he has to sign himself out. Examination General Appearance: Alert, Oriented X3, Cooperative, No acute distress HEENT: Atraumatic, PERRLA, EOMI, Mucous membrane moist/pink Respiratory: Diminished breath sounds Cardiovascular: Regular rate, Normal S1, Normal S2, No murmurs, no chest wall tenderness, Sinus rhythm with multiple PVCs, prolonged QTi, T-wave inversion to anterolateral leads Abdominal: NO distention, no tenderness, bowel sounds present, no scars noted Extremities: No clubbing, No cyanosis, No edema, Normal pulses, No tenderness/swelling Skin: No rashes, No breakdown, No significant lesion Neuro: Normal gait, Normal speech, Strength at 5/5 X4 ext, Normal tone, Sensation intact, Cranial nerves 3-12 NL, Reflexes 2+ Psych/Mental Status: Mental status NL, Mood NL Diagnoses Pneumonia due to Gram-positive/ Gram-negative Chest pain, rule out ischemic vs structural heart disease; patient refused coronary angiogram Abnormal EKG History of polysubstance abuse Possible COPD, long history of tobacco abuse hyperlipidemia History cancer completely infarct inferoseptal wall consistent with prior AL (stress test) Discharge plan Home stable condition Continue antibiotics levofloxacin 500mg daily for 5 days Advise to follow with cardiology for outpatient ischemic work up Follow up at the discharge clinic in 7 days Report to the ED if his symptoms don't improve Consults/Reason for consult chest pain long history of substance abuse Operations or Procedures PATIENT: EMILY LYONS BACCT: [id number] UNIT: [id number] : 1945 [facility] AGE / SEX: 79 / M ADM STATUS: ADM IN SERVICE 1440 ORDERING PHYSICIAN: JOSEPH URBAN PROCEDURE(s): CWMM - CARDIOLITE MULTIPLE REASON: Chest pain ORDER NUMBER(s): [id number], ACCESSION NUMBER(s): [id number] APPROVED REPORT Exam: Nuclear Stress Test BMI: 0 Stress Test Details HR Max Heart Rate (APMHR): 142.995855 bpm Target HR (85% APMHR): 120.749316 bpm BP ECG Stress ECG Conclusion lvef 46% completely infarct inferoseptal wall consistent with prior [place] no severe ischemia noted NM EXAM: Myocardial Perfusion REST/STRESS Imaging Protocol: Rest Tc-99m/Stress Tc-99m 2 days Resting Data Rest SPECT myocardial perfusion imaging was performed in supine position 45 minutes following the intravenous injection of 15.1 mCi of Tc-99m Sestamibi. Time of rest injection: 1515 Time of rest imagin Administration Route: IV Administration Site: Right AC Pharmacologic Stress Pharmacologic stress test was performed by injecting Regadenoson 0.4 mg IV push followed by the intravenous injection of 20.5 mCi of Tc-99m Sestamibi. Time of stress injection: 0900 Time of stress imagin Administration Route: IV Administration Site: Left AC Gated Stress SPECT was performed 30 minutes after stress injection. The images were gated to evaluate regional wall motion and calculate left ventricular ejection fraction. Nuclear Conclusion Nuclear Findings: equivocal lvef 46% completely infarct inferoseptal wall consistent with prior [place] no severe ischemia noted SIGNED BY: ERIN SOTO MD SIGNED DATE/TIME: 09/01/24 1124 Condition at Discharge: Stable Final Diagnosis/Problems List Pneumonia due to Gram-positive/ Gram-negative Chest pain, rule out ischemic vs structural heart disease, pending echo Abnormal EKG History of polysubstance abuse Possible COPD, long history of tobacco abuse hyperlipidemia History cancer completely infarct inferoseptal wall consistent with prior AL ( stress test) Discharge Disposition: Home Discharge Statement: "Patient was advised to return to the ER or call 911 if any headaches, dizziness, shortness of breath, chest pain, abdominal pain, bleeding, fevers, or worsening of medical condition. Patient was counseled about treatment plan, medications, possible side effects, patientverbalized understanding. All questions were answered to the best of my ability. This discharge took greater then 30 minutes in planning, reviewing documentation, counseling the patient, and discussing with other team members." ASSESSMENT ASSESSMENT Assessment Date of Service: Sep 01, 2024 Billing Provider: HOWIE SANCHEZ MD Common Visit Codes: [id number] DISCH DAY >30min NIELS CAO RESIDENT Sep 01, 2024 16:38 HOWIE SANCHEZ MD Sep 04, 2024 09:32
[2024-09-01] MEDS ORDERED: DOXYCYCLINE 100MG/100ML 100 ML IV SCH (22:00)
== END 2024-09-01 18:37 | disposition home or self-care (01) | DRG 178 ==
LOC: ER 06:50 → OVERFLOW 09:15 → WEST WING 21:16 → TELE-WESTW 08-31 16:45
PROVIDERS: ADMIT Internal Medicine; ATTEND Emergency Medicine
DX: J15.69 Pneumonia due to other Gram-negative bacteria (principal); J44.0 Chronic obstructive pulmonary disease with (acute) lower respiratory infection; I25.10 Atherosclerotic heart disease of native coronary artery without angina pectoris; E78.5 Hyperlipidemia, unspecified; Z20.822 Contact with and (suspected) exposure to COVID-19; I49.3 Ventricular premature depolarization; F14.10 Cocaine abuse, uncomplicated; Z87.891 Personal history of nicotine dependence; Z85.820 Personal history of malignant melanoma of skin; J15.9 Unspecified bacterial pneumonia
CPT/HCPCS: 36415; 71045; 78452; 80048; 80053; 80061; 80307; 83036; 83605; 83735; 83880; 84443; 84484; 85025; 87040; 87426; 87804; 93005; 93017; 93306; 94640; 96365; 96375; 99291; G0378; J0692; J2405